=== PATIENT | male | born 1970 | race Caucasian/White ===

== ENCOUNTER 2016-08-17 13:39 | Emergency (ER) | payer MEDICAID ==
[~2016-08-17] VITALS: Ht 167.6 cm; Wt 70.0 kg
[~2016-08-17 13:39] MED LIST: AMOX875 PO; ASPI81 PO; BENZ100 PO; LISI40TA PO; MEDR4PAK3 PO
[2016-08-17] MEDS ORDERED: EPINEPHrine HCL (1:10,000) 1 MG/10 ML SYRINGE ONE ×2 (13:43→13:46)
[2016-08-17] MEDS ORDERED: SODIUM CHLORIDE 0.9% FLUSH 10 ML FLUSH IV FLUSH PRN (13:45)
[2016-08-17] MEDS ORDERED: methylPREDNISolone SOD SUCC 125 MG/2 ML VIAL IM ONE (13:45)
[2016-08-17] MEDS ORDERED: diphenhydrAMINE HCL 50 MG/ML VIAL IVP ONE (13:45)
[2016-08-17] MEDS ORDERED: FAMOTIDINE 20 MG/2 ML VIAL IV PUSH ONE (13:45)
[2016-08-17] MEDS ORDERED: EPINEPHrine HCL (1:1000) 1 MG/ML VIAL IM ONE (13:45)
[2016-08-17 13:54] VITALS: BP 169/94; PULSE 88; RESP 22; TEMP 97.8; O2SAT 100
[2016-08-17 13:57] VITALS: BP 182/88; PULSE 87; RESP 20; O2SAT 100; O2SAT 99
--- NOTE | 2016-08-17 13:57 | PD ---
HPI Chief Complaint: allergic reaction Time Seen by Provider: 13:44 Travel History International Travel<30 days: No Contact w/Intl Traveler<30days: No Traveled to known affect area: No History of Present Illness HPI 45-year-old male came to the emergency room with history of tongue swelling 45 minutes prior to coming in. Patient says he was eating almonds but he has eaten almonds in the past. He is also on lisinopril. He says he is having difficulty talking but no difficulty breathing. Vital signs were stable. He has history of hypertension. He's never had this kind of reaction in the past. Patient is little anxious. FOR[facility]LY [facility] Past Medical History Narrative Medical List of his past medical, surgical, social and family history was reviewed from the nursing note. Hypertension: Yes Myocardial Infarction: Yes (AT 28 YO) Social History Alcohol Use: Yes (OCC) Tobacco Use: Yes (1 PPD) Substance Use: No Allergies-Medications (Allergen,Severity, Reaction): Uncoded Allergies: BLOOD PRESSURE STARTS WITH "S" (Adverse Reaction, Severe, Headache, ) Comments List of his allergies reviewed from the nursing note. Reported Meds & Prescriptions Reported Meds & Active Scripts Active Reported Aspirin 81 Mg Chew 81 Mg CHEW DAILY Lisinopril 40 Mg Tab 40 Mg PO DAILY Narrative Medication List of his home medications reviewed from the nursing note Review of Systems Except as stated in HPI: all other systems reviewed are Neg Physical Exam Narrative GENERAL: Awake, alert, anxious, moderate distress SKIN: Focused skin assessment warm/dry. HEAD: Atraumatic. Normocephalic. EYES: Pupils equal and round. No scleral icterus. No injection or drainage. ENT: No nasal bleeding or discharge. Mucous membranes pink and moist. Tongue is swollen on the left have. No stridor no drooling NECK: Trachea midline. No JVD. CARDIOVASCULAR: Regular rate and rhythm. No murmur appreciated. RESPIRATORY: No accessory muscle use. Clear to auscultation. Breath sounds equal bilaterally. GASTROINTESTINAL: Abdomen soft, non-tender, nondistended. Hepatic and splenic margins not palpable. MUSCULOSKELETAL: No obvious deformities. No clubbing. No cyanosis. No edema. NEUROLOGICAL: Awake and alert. No obvious cranial nerve deficits. Motor grossly within normal limits. Normal speech. PSYCHIATRIC: Appropriate mood and affect; insight and judgment normal. Data Data Last Documented VS Vital Signs Date Time Temp Pulse Resp B/P Pulse Ox O2 Delivery O2 Flow Rate FiO2 08/17/16 13:57 88 22 100 Room Air 08/17/16 13:57 182/88 08/17/16 13:54 97.8 Orders Epinephrine (1:10,000) Inj (Epinephrine (08/17/16 13:43) Ecg Monitoring (08/17/16 13:44) Iv Access Insert/Monitor (08/17/16 13:44) Oximetry (08/17/16 13:44) Diphenhydramine Inj (Benadryl Inj) (08/17/16 13:45) Methylprednisolone So Succ Inj (Solumedr (08/17/16 13:45) Famotidine Inj (Pepcid Inj) (08/17/16 13:45) Sodium Chloride 0.9% Flush (Ns Flush) (08/17/16 13:45) Epinephrine (1:1000) Inj (Adrenalin (1:1 (08/17/16 13:45) Epinephrine (1:10,000) Inj (Epinephrine (08/17/16 13:46) MDM Medical Decision Making Medical Screen Exam Complete: Yes Emergency Medical Condition: Yes Medical Record Reviewed: Yes Differential Diagnosis Angioedema, anaphylactic reaction Narrative Course 4:30 PM patient was given subcutaneous epinephrine, IV Benadryl, IV Solu-Medrol and IV Pepcid. He was given 1 L of IV fluid bolus. Patient was asked to wait for at least 4 hours postmedication. I had checked on him at 3 PM when his tongue swelling was little bit better but not fully subsided. Patient was again made to understand that the tongue swelling needs to subside completely before he can be discharged. Otherwise he needs to be admitted. I was told just a little bit ago that patient left AMA. I was notified of this fact after he had left. I did not get a chance to speak with the patient and discuss about the risks of leaving although initially I did mention to him that there was a chance of the medications wearing off and the swelling returning. He is in full capacity to make decisions for himself. Procedures EKG Prior to Arrival: No Diagnosis Primary Impression: Angioedema Qualified Code: T78.3XXA - Angioedema, initial encounter Additional Impression: Severe tongue swelling Disposition: AGAINST MEDICAL ADVICE Condition: Serious Agnes,Shravanti R. MD Aug 17, 2016 13:57
[2016-08-17] MEDS ORDERED: ASPI81CH CHEW (14:03)
[2016-08-17] MEDS ORDERED: LISI40TA PO (14:03)
== END 2016-08-17 15:15 | disposition left against medical advice (07) ==
LOC: NEPE 13:39
DX: T78.3XXA Angioneurotic edema, initial encounter (principal); I10 Essential (primary) hypertension; F17.200 Nicotine dependence, unspecified, uncomplicated; Z79.82 Long term (current) use of aspirin; Z79.899 Other long term (current) drug therapy
CPT/HCPCS: 96372; 96374; 96375; 99284; J0171; J1200; J2930

== ENCOUNTER 2017-04-18 03:43 | Emergency (ER) | payer SELFPAY ==
[~2017-04-18 03:43] MED LIST changes: -AMOX875 PO; +ASPI-516 CHEW; -ASPI81 PO; -BENZ100 PO; -MEDR4PAK3 PO
[2017-04-18 03:45] VITALS: BP 168/98; PULSE 108; RESP 16; TEMP 99.8; O2SAT 97
[2017-04-18] MEDS ORDERED: IBUPROFEN 800 MG TAB PO ONE (04:15)
[2017-04-18] MEDS ORDERED: IBUP1TAB7 PO (04:19)
[2017-04-18] MEDS ORDERED: AMLO10TA2 PO (04:19)
--- NOTE | 2017-04-18 04:19 | PD ---
HPI Chief Complaint: Cold / Flu Symptoms Time Seen by Provider: 04:02 Travel History International Travel<30 days: No Contact w/Intl Traveler<30days: No Traveled to known affect area: No History of Present Illness HPI Patient is a 46-year-old male presenting to the emergency department for evaluation of cold and flulike symptoms. Patient states his symptoms started Saturday, he reports body aches, nasal congestion, headache, cough. Patient reports a max temp at home of 100.1. He took Tylenol 40 minutes prior to arrival which has helped alleviate his symptoms. Symptom onset was gradual, there are no exacerbating factors. Patient denies any shortness of breath, chest pain, abdominal pain. Patient is also requesting a refill of his blood pressure medication amlodipine. PFSH Past Medical History Cardiac Catheterization: Yes Cardiovascular Problems: Yes Diabetes: No Hypertension: Yes Myocardial Infarction: Yes (AT 28 YO) Social History Alcohol Use: Yes (OCC) Tobacco Use: Yes (1 PPD) Substance Use: No Allergies-Medications (Allergen,Severity, Reaction): Uncoded Allergies: BLOOD PRESSURE STARTS WITH "S" (Adverse Reaction, Severe, Headache, ) Reported Meds & Prescriptions Reported Meds & Active Scripts Active Reported Lisinopril 40 Mg Tab 40 Mg PO DAILY Review of Systems Except as stated in HPI: all other systems reviewed are Neg General / Constitutional: Positive: Fever, Chills HENT: Positive: Headaches, Rhinitis, Congestion Cardiovascular: No: Chest Pain or Discomfort Respiratory: Positive: Cough, No: Shortness of Breath Gastrointestinal: No: Nausea, Vomiting, Abdominal Pain Musculoskeletal: Positive: Myalgias Neurologic: No: Weakness Physical Exam Narrative GENERAL: Well-developed, well-nourished, well-appearing male. Presenting in no acute distress. SKIN: Warm and dry. HEAD: Atraumatic. Normocephalic. EYES: Pupils equal and round. No scleral icterus. No injection or drainage. ENT: No nasal bleeding or discharge. Mucous membranes pink and moist. Cobblestone appearance posterior pharynx. NECK: Trachea midline. No JVD. CARDIOVASCULAR: Regular rate and rhythm. RESPIRATORY: No accessory muscle use. Clear to auscultation. Breath sounds equal bilaterally. GASTROINTESTINAL: Abdomen soft, non-tender, nondistended. Hepatic and splenic margins not palpable. MUSCULOSKELETAL: Extremities without clubbing, cyanosis, or edema. No obvious deformities. NEUROLOGICAL: Awake and alert. No obvious cranial nerve deficits. Motor grossly within normal limits. Five out of 5 muscle strength in the arms and legs. Normal speech. PSYCHIATRIC: Appropriate mood and affect; insight and judgment normal. Data Data Last Documented VS Vital Signs Date Time Temp Pulse Resp B/P (MAP) Pulse Ox O2 Delivery O2 Flow Rate FiO2 04/18/17 03:45 99.8 108 16 168/98 (121) 97 Orders Orders Ed Discharge Order (04/18/17 04:11) Ibuprofen (Motrin) (04/18/17 04:15) MDM Medical Decision Making Medical Screen Exam Complete: Yes Emergency Medical Condition: Yes Interpretation(s) Vital Signs Date Time Temp Pulse Resp B/P (MAP) Pulse Ox O2 Delivery O2 Flow Rate FiO2 04/18/17 03:45 99.8 108 16 168/98 (121) 97 Differential Diagnosis Influenza versus viral syndrome versus bronchitis versus other Narrative Course Patient is a 46-year-old male presented to the emergency room t for evaluation of cold and flu symptoms that started 3-1/2 days ago. Patient took Tylenol approximately 1 hour ago. Some mildly elevated temp but appears well in the exam is fairly unremarkable. Patient is encouraged to continue symptom management. He is encouraged to obtain [id number] decongestant, he was advised to take ibuprofen as needed and as directed for fevers and pain. He was advised to follow-up with primary doctor. He was strongly encouraged to return to the emergency department for any new or worsening symptoms. Patient will be given a dose of ibuprofen in the emergency department. He was given a flyer regarding these in the health clinic. Patient verbalized understanding of these instructions. Patient is stable for discharge. Diagnosis Primary Impression: Upper respiratory infection, viral Referrals: [facility] Patient Instructions: General Instructions, Upper Respiratory Infection (ED) Additional Instructions: Follow-up at the [facility] Maintain adequate fluid intake Continue symptom management Return to emergency department for any new or worsening symptoms Med/Other Pt SpecificInfo: Prescription(s) given Scripts Amlodipine (Amlodipine) 10 Mg Tab 10 MG PO DAILY for Blood Pressure Management, #30 TAB 0 Refills Prov: Vale Ordoñez 04/18/17 Ibuprofen (Ibuprofen) 800 Mg Tab 800 MG PO Q6HR Y for PAIN, #40 TAB 0 Refills Prov: Vale Ordoñez 04/18/17 Disposition: 01 DISCHARGE HOME Condition: Stable Vale Ordoñez Apr 18, 2017 04:19
== END 2017-04-18 05:06 | disposition home or self-care (01) ==
LOC: NEPD 03:43
DX: J06.9 Acute upper respiratory infection, unspecified (principal); I10 Essential (primary) hypertension; F17.200 Nicotine dependence, unspecified, uncomplicated
CPT/HCPCS: 99283

== ENCOUNTER 2017-06-23 13:09 | Emergency (ER) | payer SELFPAY ==
[~2017-06-23] VITALS: Ht 170.2 cm; Wt 68.0 kg
[~2017-06-23 13:09] MED LIST changes: +AMLO10TA2 PO; -ASPI-516 CHEW; +IBUP1TAB7 PO
[2017-06-23 13:18] VITALS: BP 183/99; PULSE 94; RESP 18; TEMP 98.4; O2SAT 99
== END 2017-06-23 15:29 | disposition left against medical advice (07) ==
LOC: NED 13:09
DX: M54.9 Dorsalgia, unspecified (principal); Z53.21 Procedure and treatment not carried out due to patient leaving prior to being seen by health care provider
CPT/HCPCS: 99281